=== PATIENT | female | born 1950 | race Caucasian/White ===

== ENCOUNTER 2018-10-05 16:53 | Inpatient (IN) | payer OTHER, MEDICARE ==
[~2018-10-05] VITALS: Ht 152.4 cm; Wt 56.7 kg
[~2018-10-05 16:53] MED LIST: AMOX1TAB61 PO; METR-90 PO; None at this time; ONDA4TAB13 SL; ONDA4TAB7 PO; OXYC-302 PO; OXYC-307 PO
[2018-10-05 17:52] LABS: BASOPHILS # (AUTO) 0.11 x10^3/uL (0-0.1); BASOPHILS % (AUTO) 1 % (0-1); EOSINOPHILS # (AUTO) 0.07 x10^3/uL (0-0.4); EOSINOPHILS % (AUTO) 1 % (1-7); LYMPHOCYTES # (AUTO) 2.21 x10^3/uL (1-3.4); LYMPHOCYTES % (AUTO) 17 % (22-44); MD NO; MEAN CORPUSCULAR HEMOGLOBIN 27.1 pg (27.0-34.8); MEAN CORPUSCULAR HGB CONC 33.4 g/dL (32.4-35.8); MEAN CORPUSCULAR VOLUME 81.2 fL (80-100); MEAN PLATELET VOLUME 7.6 fL (7.4-10.4); MONOCYTES # (AUTO) 0.41 x10^3/uL (0.2-0.8); MONOCYTES % (AUTO) 3 % (2-9); NEUTROPHILS # (AUTO) 9.89 x10^3/uL (1.8-6.8); NEUTROPHILS % (AUTO) 78 % (42-75); PLATELET COUNT 435 x10^3/uL (130-400); RED BLOOD COUNT 4.28 x10^6/uL (3.82-5.3); RED CELL DISTRIBUTION WIDTH 14.9 % (9.6-15.2)
[2018-10-05 18:02] LABS: ALANINE AMINOTRANSFERASE 13 U/L (12-78); ALBUMIN 3.4 g/dL (3.4-5.0); ANION GAP 7 mmol/L (5-15); CALCIUM 8.9 mg/dL (8.5-10.1); CHLORIDE 105 mmol/L (98-107); CREATININE 0.67 mg/dL (0.55-1.02)
[2018-10-05 18:04] LABS: ALKALINE PHOSPHATASE 141 U/L (45-117); BILIRUBIN,TOTAL 0.3 mg/dL (0.2-1.0); TOTAL PROTEIN 7.5 g/dL (6.4-8.2)
--- NOTE | 2018-10-05 18:28 | NUR ---
pt to room from lobby at this time. ambulatory with steady gait.
--- NOTE | 2018-10-05 18:49 | NUR ---
PT BEDSIDE REPORT FROM MICK MANRIQUE. THIS RN TO ASSUME CARE OF PT. AWAITING UA. STATED URINATING PHYSIOLOGIST TO ROOM. AWARE OF NEED FOR UA.
--- NOTE | 2018-10-05 18:52 | NUR ---
PT PRESENTS TO ED C/O ABD PAIN X APPROX 2 MOS. PT UNABLE TO MAKE APPT WITH PCP. STATES PAIN/DISCOMFORT PROGRESSIVELY WORSENING. ABLE TO TOLERATE MEALS. HAS IRREGULAR BM'S DAILY. PT STATES SHE WAS SEEN AT RECENTLY AND WAS TOLD OF [facility]. PT RESTING ON GURNEY. CALL LIGHT IN REACH. IV ESTABLISHED. AWAITING CT ABD. SBAR REPORT TO PARAS MANRIQUE.
--- NOTE | 2018-10-05 19:11 | NUR ---
PT TO CT AT THIS TIME.
[2018-10-05] MEDS ORDERED: OMNIPAQUE 350 MG/ML, 100ML BOTTLE ONE (19:14)
--- NOTE | 2018-10-05 19:54 | NUR ---
PT AMB W/ STEADY GAIT TO RR AT THIS TIME. ATTEMPTING UA.
--- NOTE | 2018-10-05 21:11 | NUR ---
PT ASKED FOR PAIN MEDS AT THIS TIME. MD NOTIFIED. AWAITING NEW ORDERS.
[2018-10-05 21:27] LABS: MICROSCOPIC NOT IND
[2018-10-05 21:30] LABS: CULTURE INDICATED? NO
[2018-10-05] MEDS ORDERED: MORPHINE SULFATE 4 MG/ML, 1ML IVPush PRN (21:30)
[2018-10-05] MEDS ORDERED: MORPHINE SULFATE 4 MG/ML, 1ML ONE (21:46)
[2018-10-05 22:30] VITALS: BP 158/73
[2018-10-05 22:34] VITALS: BP 158/73
[2018-10-06] MEDS ORDERED: LIDODERM 5% PATCH TD PRN (00:30)
[2018-10-06] MEDS ORDERED: BISACODYL 10 MG SUPP PR PRN (00:30)
[2018-10-06] MEDS ORDERED: LABETALOL 5MG/ML, 20ML IVPush PRN (00:30)
[2018-10-06] MEDS ORDERED: ACETAMINOPHEN 325 MG TABLET PO PRN (00:30)
[2018-10-06] MEDS: SODIUM CHLORIDE 0.9% 1,000 ML IV SCH ×3 (00:33→21:21)
[2018-10-06] MEDS: HYDROmorphone 2 MG/ML, 1ML IVPush PRN ×5 (00:33→21:21)
[2018-10-06 03:03] VITALS: BP 117/52
[2018-10-06 06:43] VITALS: BP 120/66
[2018-10-06] MEDS: ENOXAPARIN 40 MG/0.4 ML SQ SCH ×2 (11:53→21:21)
[2018-10-06 13:03] VITALS: BP 154/64
[2018-10-06 15:03] VITALS: BP 116/61
[2018-10-06 18:52] VITALS: BP 148/71
[2018-10-06] MEDS: ONDANSETRON 2MG/ML, 2ML IVPush PRN (19:35)
[2018-10-07 01:28] VITALS: BP 139/55
[2018-10-07] MEDS: ONDANSETRON 2MG/ML, 2ML IVPush PRN (02:24)
[2018-10-07] MEDS: HYDROmorphone 2 MG/ML, 1ML IVPush PRN ×4 (02:25→19:30)
[2018-10-07 05:08] LABS: BASOPHILS # (AUTO) 0.06 x10^3/uL (0-0.1); BASOPHILS % (AUTO) 1 % (0-1); EOSINOPHILS % (AUTO) 1 % (1-7); LYMPHOCYTES # (AUTO) 1.99 x10^3/uL (1-3.4); LYMPHOCYTES % (AUTO) 21 % (22-44); MD NO; MEAN CORPUSCULAR HEMOGLOBIN 27.4 pg (27.0-34.8); MEAN CORPUSCULAR HGB CONC 33.6 g/dL (32.4-35.8); MEAN CORPUSCULAR VOLUME 81.6 fL (80-100); MEAN PLATELET VOLUME 8.1 fL (7.4-10.4); MONOCYTES # (AUTO) 0.45 x10^3/uL (0.2-0.8); MONOCYTES % (AUTO) 5 % (2-9); NEUTROPHILS # (AUTO) 6.85 x10^3/uL (1.8-6.8); NEUTROPHILS % (AUTO) 73 % (42-75); PLATELET COUNT 357 x10^3/uL (130-400); RED CELL DISTRIBUTION WIDTH 14.7 % (9.6-15.2)
[2018-10-07 05:13] LABS: ANION GAP 7 mmol/L (5-15); CALCIUM 8.1 mg/dL (8.5-10.1); CHLORIDE 112 mmol/L (98-107)
[2018-10-07 05:14] LABS: CREATININE 0.54 mg/dL (0.55-1.02)
[2018-10-07] MEDS: SODIUM CHLORIDE 0.9% 1,000 ML IV SCH ×2 (06:03→17:31)
[2018-10-07 06:45] VITALS: BP 150/73
[2018-10-07] MEDS ORDERED: LIDOCAINE-MPF 1%, 5ML ONE (07:41)
[2018-10-07] MEDS: LORazepam 2 MG/ML, 1ML IVPush PRN (07:44)
[2018-10-07] MEDS ORDERED: MIDAZOLAM 1 MG/ML, 5ML ONE (07:51)
[2018-10-07] MEDS ORDERED: FLUMAZENIL 0.1 MG/1 ML, 5ML ONE (07:51)
[2018-10-07] MEDS ORDERED: NALOXONE 1 MG/ML, 2ML ONE (07:51)
[2018-10-07] MEDS ORDERED: FENTANYL PF 100 MCG/2ML ONE (07:51)
[2018-10-07 08:40] LABS: ALANINE AMINOTRANSFERASE 10 U/L (12-78); ALBUMIN 2.8 g/dL (3.4-5.0); ALKALINE PHOSPHATASE 121 U/L (45-117); BILIRUBIN,TOTAL 0.6 mg/dL (0.2-1.0); TOTAL PROTEIN 6.4 g/dL (6.4-8.2)
[2018-10-07 09:10] VITALS: BP 113/47
[2018-10-07 13:56] VITALS: BP 124/68
[2018-10-07 18:42] VITALS: BP 143/69
[2018-10-08] MEDS: HYDROmorphone 2 MG/ML, 1ML IVPush PRN ×4 (01:21→19:31)
[2018-10-08 02:39] VITALS: BP 130/71
[2018-10-08] MEDS: SODIUM CHLORIDE 0.9% 1,000 ML IV SCH ×2 (05:16→15:02)
[2018-10-08 06:43] VITALS: BP 156/73
[2018-10-08] MEDS: ONDANSETRON 2MG/ML, 2ML IVPush PRN (07:30)
[2018-10-08] MEDS: ENOXAPARIN 40 MG/0.4 ML SQ SCH (07:30)
[2018-10-08] MEDS: POLYETHYLENE GLYCOL 17 GM PACKET PO SCH (09:00)
[2018-10-08] MEDS: HYDROcodone/APAP 5/325 TABLET PO PRN (11:10)
[2018-10-08 12:54] VITALS: BP 147/69
[2018-10-08 18:45] VITALS: BP 150/64
[2018-10-08 19:29] VITALS: BP 154/59
[2018-10-09] MEDS: HYDROcodone/APAP 5/325 TABLET PO PRN ×4 (00:20→17:02)
[2018-10-09] MEDS: SODIUM CHLORIDE 0.9% 1,000 ML IV SCH ×3 (00:20→20:55)
[2018-10-09 00:27] VITALS: BP 126/66
[2018-10-09 06:37] VITALS: BP 122/55
[2018-10-09] MEDS: POLYETHYLENE GLYCOL 17 GM PACKET PO SCH (07:46)
[2018-10-09] MEDS: ENOXAPARIN 40 MG/0.4 ML SQ SCH (07:46)
[2018-10-09 14:15] VITALS: BP 177/70
[2018-10-09] MEDS: ONDANSETRON 2MG/ML, 2ML IVPush PRN ×2 (14:25→20:48)
[2018-10-09 19:45] VITALS: BP 145/63
[2018-10-09] MEDS: LORazepam 2 MG/ML, 1ML IVPush PRN (22:50)
[2018-10-10 02:16] VITALS: BP 146/67
[2018-10-10 06:52] VITALS: BP 144/68
[2018-10-10] MEDS: ENOXAPARIN 40 MG/0.4 ML SQ SCH (08:27)
[2018-10-10] MEDS: POLYETHYLENE GLYCOL 17 GM PACKET PO SCH (08:27)
[2018-10-10] MEDS: SODIUM CHLORIDE 0.9% 1,000 ML IV SCH (08:27)
[2018-10-10] MEDS ORDERED: POLY17PO5 PO (12:03)
[2018-10-10] MEDS ORDERED: HYDR-3240 PO (12:03)
[2018-10-10] MEDS ORDERED: ONDA8TAB9 PO (12:03)
[2018-10-10] MEDS ORDERED: LIDO700A20 TD (12:03)
[2018-10-10] MEDS ORDERED: MORP15TA3 PO (12:03)
[2018-10-10 13:08] VITALS: BP 161/77
[2018-10-10] MEDS: HYDROcodone/APAP 5/325 TABLET PO PRN (13:15)
== END 2018-10-10 17:15 | disposition home or self-care (01) | DRG 357 ==
LOC: ED 20:18 → EDIP 21:05 → 3NW 22:29 → DCLOUNGE 10-10 16:50
PROVIDERS: ADMIT Internal Medicine; ATTEND Internal Medicine
PROC: 0WBF3ZX Excision of Abdominal Wall, Percutaneous Approach, Diagnostic (ICD-10-PCS; principal; 2018-10-07)
DX: C18.9 Malignant neoplasm of colon, unspecified (principal); K56.51 Intestinal adhesions [bands], with partial obstruction; C77.9 Secondary and unspecified malignant neoplasm of lymph node, unspecified; Z88.0 Allergy status to penicillin; Z91.018 Allergy to other foods; D64.9 Anemia, unspecified; D72.829 Elevated white blood cell count, unspecified; G62.9 Polyneuropathy, unspecified; Z87.891 Personal history of nicotine dependence; Z90.711 Acquired absence of uterus with remaining cervical stump; Z92.21 Personal history of antineoplastic chemotherapy; Z90.49 Acquired absence of other specified parts of digestive tract
CPT/HCPCS: 36415; 49180; 74177; 77012; 80053; 81003; 82378; 82728; 83690; 85025; 88305; 96374; 99156; 99157; G0378; J1170; J1650; J2250; J2405; J3010; Q9967; J2060; J2310; J7030

== ENCOUNTER → 2018-10-27 | Outpatient (CLI) | payer OTHER, MEDICARE ==
[~2018-10-27] MED LIST changes: +HYDR-3240 PO; +LIDO700A20 TD; +MORP15TA3 PO; +ONDA8TAB9 PO; +POLY17PO5 PO
== END | disposition home or self-care (01) ==
LOC: PETCFH 13:13
PROVIDERS: ATTEND Internal Medicine Hematology & Oncology
DX: C18.7 Malignant neoplasm of sigmoid colon (principal); K76.89 Other specified diseases of liver; N28.1 Cyst of kidney, acquired; I70.0 Atherosclerosis of aorta; R19.09 Other intra-abdominal and pelvic swelling, mass and lump; Z88.0 Allergy status to penicillin; Z91.018 Allergy to other foods
CPT/HCPCS: 78815; A9552

== ENCOUNTER 2019-02-14 11:52 | Outpatient (CLI) | payer MEDICARE, OTHER ==
[2019-02-14] MEDS ORDERED: OMNIPAQUE 350 MG/ML, 100ML BOTTLE ONE (15:15)
== END 2019-02-14 23:59 | disposition home or self-care (01) ==
LOC: CFH 11:52
PROVIDERS: ATTEND Internal Medicine Hematology & Oncology
DX: C18.7 Malignant neoplasm of sigmoid colon (principal); N28.1 Cyst of kidney, acquired; K40.90 Unilateral inguinal hernia, without obstruction or gangrene, not specified as recurrent; R19.09 Other intra-abdominal and pelvic swelling, mass and lump; K63.89 Other specified diseases of intestine
CPT/HCPCS: 71260; 74177; 82565; Q9967